=== PATIENT | female | born 1980 | race Caucasian/White ===

== ENCOUNTER 2018-07-20 03:59 | Emergency (ER) | payer BC ==
[~2018-07-20] VITALS: Ht 160 cm; Wt 65.8 kg
[2018-07-20 03:59] VITALS: BP 115/71
== END 2018-07-20 04:22 | disposition home or self-care (01) ==
LOC: ER 04:02
DX: J32.9 Chronic sinusitis, unspecified (principal)
CPT/HCPCS: 99283; A4606